=== PATIENT | female | born 1980 | race Caucasian/White ===

== ENCOUNTER 2019-06-19 05:32 | Inpatient (IN) | payer OTHER ==
[2019-06-16 14:50] LABS: BASOPHILS 1.5 % (0-2); EOSINOPHILS 3.8 % (0-7); HEMATOCRIT 35.5 % (36.0-48.0); LYMPHOCYTES 34.2 % (15-50); MCH 26.1 pg (26.0-34.0); MCV 84.3 fL (80.0-100.0); MEAN PLATELET VOLUME 10.3 fL (7.4-10.4); MONOCYTES 9.6 % (2-11); NEUTROPHILS 50.9 % (40-80); PLATELET COUNT 243 10x3/uL (130-400); RBC 4.21 10x6/uL (4.00-5.40); RDW 18.5 % (11.5-14.5); WBC 4.8 10x3/uL (4.8-10.8)
[2019-06-16 15:00] LABS: CALC OSMOLALITY 276 mosm/kg (275-300); CALCIUM 8.8 mg/dL (8.5-10.1); CARBON DIOXIDE 30.4 mmol/L (21.0-32.0); CHLORIDE - SERUM 103 mmol/L (98-107); CREATININE - SERUM 0.9 mg/dL (0.6-1.3); GLUCOSE 83 mg/dL (74-106); SODIUM 140 mmol/L (136-145); UREA NITROGEN 9 mg/dL (7-18); eGFR NON AFRICAN AMERICAN 75 mL/min (90-120)
[~2019-06-19] VITALS: Ht 167.6 cm; Wt 75.5 kg
[2019-06-19] VITALS (8 sets, daily range): BP systolic 97–145; BP diastolic 62–93; BMI 26.8
[~2019-06-19 05:32] MED LIST: FIBER; MOTRIN600 MG PO; PERCOCET 5/3251 TA1 PO; PRENATAL COMPLE1 TAB; SLOW RELEASE I160 MG PO
[2019-06-19 06:30] LABS: HCG URINE NEGATIVE (NEGATIVE)
--- NOTE | 2019-06-19 09:12 | NUR ---
AMANDA REF [id number] LOT [id number] EXP 05/18/2023
--- NOTE | 2019-06-19 10:29 | NUR ---
PT RECEIVED VIA BED TO ROOM 1273 FROM RECOVERY. PT AAOx3, RATES PAIN 6/10 AT THIS TIME. IV INFUSING LR ORDERED TO LEFT HAND, 20G PIV NOTED WITH TEGADERM C/D/I. 3 LAP ABD INCISIONS ARE C/D WITH DERMABOND INTACT, NO DRAINAGE NOTED. NO REDNESS OR SWELLING NOTED TO INCISION SITES. NO VAGINAL BLEEDING SEEN, PERIPAD PLACED TO MONITOR. TOVAR CATH DRAINING CLEAR YELLOW URINE TO BEDSIDE DRAINAGE. SCD'S ON LE BILAT AND ON PUMP. GOOD PEDAL PULSES 2+ BILAT. VSS, SEE POST OP VITALS FOR DOC. WILL ADMIN PAIN MED ORDERED.
--- NOTE | 2019-06-19 10:34 | NUR ---
PT ADMIN SCHEDULED TORADOL IVP ORDERED, RATING PAIN 5-6 AT THIS TIME. SEE EMAR FOR DOC. WILL REASSESS.
--- NOTE | 2019-06-19 10:38 | NUR ---
TOVAR CATH REMOVED PER ORDER, 130ML CLEAR YELLOW URINE NOTED IN UROMETER. PT KIESHA WELL. PT INSTRUCTED TO NOTIFY THIS RN WHEN SHE FEELS THE URGE TO VOID TO ASSIST TO BR FIRST TIME UP AMBULATING. UNDERSTANDING VERBALIZED.
--- NOTE | 2019-06-19 11:05 | NUR ---
THIS RN TO ROOM FOR PT CHECK. PT RESTING SUPINE WITH LEFT TILT, EYES CLOSED, RESP EVEN AND UNLABORED. PT LEFT UNDISTURBED FOR REST. PT'S MOTHER ON BEDSIDE COUCH. SRUx2, CL IN REACH.
--- NOTE | 2019-06-19 11:21 | NUR ---
PT C/O PAIN RATED APPROX 5/10 IN ABD, REQUESTING PAIN MED. PT ADMIN 1MG DILAUDID PER ORDER, SEE EMAR FOR DOC. WILL REASSESS.
--- NOTE | 2019-06-19 12:06 | NUR ---
PT C/O NO PAIN RELIEF, RATES PAIN 6-7/10. PT ADMIN ADDITIONAL 1MG DILAUDID PER ORDER, FOR TOTAL OF 2MG. SEE EMAR FOR DOC. FANS DELIVERS LUNCH TRAY. PT INSTRUCTED SHE MAY EAT SLOWLY TOLERATED AND TO REPORT ANY NAUSEA. PT STATES SHE HAS ONLY TAKEN SIPS OF WATER AND DOES NOT WANT TO TRY TO EAT RIGHT NOW. PT HOB ELEVATED TO APPROX 60 DEGREES, ENCOURAGED TO DEEP BREATHE AND DOES SO. WILL ALLOW PT TO REST. SRUx2, CL IN REACH. WILL CONT TO MONITOR. PT'S MOTHER ON BEDSIDE COUCH.
--- NOTE | 2019-06-19 12:48 | NUR ---
PT PLACED ON 2L OXYGEN VIA NC FOR OXYGEN SATURATIONS NOT WNL POST IVP DILAUDID.
--- NOTE | 2019-06-19 14:30 | NUR ---
PT CALLS OUT [employer]UAL[employer] INSURANCE CLAIM ADJUSTER LIGHT STATING SHE "NEEDS TO GET UP TO PEE." THIS RN TO ROOM. IV SALINE LOCKED, OXYGEN OFF, SCD'S OFF. PT UP TO BR WITHOUT ASSIST, AMBULATES TO BR WITH STEADY GAIT. SMALL AMOUNT BRIGHT RED BLEEDING NOTED TO PERIPAD. PERICARE PER PT, NEW PAD AND PANTIES PLACED. PT UNABLE TO VOID. PT ENCOURAGED WILL TRY AGAIN, AND IF STILL UNABLE TO VOID AT 6 HOUR MARY POST TOVAR REMOVAL, WILL BLADDER SCAN. UNDERSTANDING VERBALIZED. PT PROVIDED WITH NEW ICE PACK TO ABD, FRESH ICE WATER, AND JELLO AND ENCOURAGED TO DRINK. NEURONTIN ADMIN ORDERED, SEE EMAR FOR DOC. PT DENIES NAUSEA OR ANY NEEDS AT THIS TIME, DENIES WANTING CRACKERS OR ANYTHING TO EAT. SRUx2, CL IN REACH. WILL CONT TO MONITOR. FAMILY ON BEDSIDE COUCH.
--- NOTE | 2019-06-19 17:07 | NUR ---
THIS RN TO ROOM FOR PT CHECK. PT RESTING WITH LIGHTS OFF. PT AWAKE, STATES SHE GOT UP TO BR BUT WAS UNABLE TO VOID. BLADDER SCANNED AND SHOWS 152ML URINE IN BLADDER x 2 SCANS. PT ENCOURAGED TO CONTINUE TO DRINK, LARGE CUP OF ICE FILLED FOR THIRD TIME. PT STATES SHE ATE MASHED POTATOES FROM DINNER TRAY ONLY. PT DENIES NAUSEA BUT REPORTS LACK OF APPETITE. PT ENCOURAGED, WILL RE-EVALUATE BLADDER. SCHEDULED TORADOL ADMIN ORDERED, SEE EMAR FOR DOC. PT DENIES FURTHER NEEDS. SRUx2, CL IN REACH. SPOUSE ON BEDSIDE COUCH.
--- NOTE | 2019-06-19 17:53 | NUR ---
DR QUEEN PHONED AND REPORT GIVEN THAT PT HAS STILL NOT BEEN ABLE TO VOID, BLADDER SCAN OF 152ML, AND THAT PT IS TOLERATING PO FLUIDS AND DRINKING WELL. ORDER RCVD TO GIVE PT MORE TIME, AND IF SHE HAS NOT VOIDED BY 1899, TO GIVE PT IV BOLUS OF 500ML LR.
--- NOTE | 2019-06-19 18:10 | NUR ---
PT RESTING WITH SIG OTHER AT BEDSIDE, LEFT UNDISTURBED.
--- NOTE | 2019-06-19 18:53 | NUR ---
LYING ON LT SIDE WITH RESPIRATIONS UNLABORED. FOB ASLEEP ON SOFA BESIDE BED. LIGHTS IN ROOM PRESENTLY DIMMED.
--- NOTE | 2019-06-19 19:05 | NUR ---
UP WALKING IN HALLWAY. GAIT STEADY. PT. REPORTS THAT SHE HAS OF YET NOT VOIDED BUT DOES NOT FEEL URGE. COMPLAINS THAT MOUTH VERY DRY.
--- NOTE | 2019-06-19 19:08 | NUR ---
PT AMBULATING IN HALLWAY WITH S/O. TOLERATED WELL. PT REPORTS THAT SHE HAS NOT VOIDED AT THAT TIME. WATER PITCHER FILLED. ENCOURAGED PT TO DRINK FLUIDS AFTER AMBULATING. VERBALIZED UNDERSTANDING.
--- NOTE | 2019-06-19 19:20 | NUR ---
PT RESTING IN BED. ASSESSMENT COMPLETE PER FLOWSHEET. VSS. BBS CLEAR. HYPOACTIVE BS X4 QUADRANTS. PT REPORTS THAT SHE HAS NOT PASSED FLATUS AT THIS TIME. ABDOMINAL INCISIONS X2 AND UMBILICUS INCISION C/D/I WITH DERMABOND. PT REPORTS THAT SHE HAS HAD A SMALL AMOUNT OF VAGINAL BLEEDING ON HER PERIPAD. PT REPORTS THAT SHE HAS NO VOIDED SINCE FC WAS REMOVED. WILL START 500ML BOLUS OF LR PER MD ORDER. IV TO LEFT HAND WITHOUT REDNESS OR TENDERNESS. NO EDEMAN NOTED TO BLE. PT WAS UP AND AMBULATING IN THE HALLWAY EARLIER AND SCDS ARE OFF AT THIS TIME. POC DISCUSSED INCLUDING PAIN MANAGEMENT. ENCOURAGING PT TO DRINK FLUIDS, IV FLUIS BOLUS, VOIDING, AMBULATION, INCISION CARE AND S/S OF INFECTION. QUESTIONS ANSWERED. PT INSTRUCTED TO NOTIFY NURSE WITH ANY PROBLEMS, NEEDS, OR CONCERNS. VERBALIZED UNDERSTANDING. BED IN LOW POSITION. SR UP X2. CALL LIGHT WITHIN PT REACH. S/O AT BEDSIDE.
--- NOTE | 2019-06-19 19:39 | NUR ---
PERCOCET 5 X1 TABLET GIVE FOR C/O ABD/INC PAIN. CRACKERS PROVIDED. INSTRUCTED PT TO NOTIFY NURSE IF MEDICATION NOT EFFECTIVE OR WITH ANY OTHER PROBLEMS, NEEDS,OR CONCERNS. VERBALIZED UNDERSTANDING.
--- NOTE | 2019-06-19 19:42 | NUR ---
PT UNABLE TO VOID. 500ML FLUID BOLUS OF LR STARTED PER MD ORDER. IV FLUSHED WITHOUT DIFFICULTY. NO REDNESS OR TENDERNESS NOTED TO SITE.
--- NOTE | 2019-06-19 20:12 | NUR ---
PT RESTING IN BED. S/O AT BEDSIDE. PT DENIES ANY COMPLAINTS. WATER PITCHER FILLED. IV CONTINUES TO INFUSE BOLUS AT THIS TIME. INSTRUCTED PT TO NOTIFY NURSE WITH ANY PROBLEMS, NEEDS, OR CONCERNS. VERBALIZED UNDERSTANDING.
--- NOTE | 2019-06-19 20:25 | NUR ---
LR BOLUS FINISHED AT THIS TIME. IV FLUSHED. NO REDNESS OR TENDERNESS NOTED TO SITE/ PT NOW REPORTS HER IS 3/10. WATER PITCHER FILLED. ENCOURAGED PT TO AMBULATE AND TO NOTIFY NURSE IF SHE VOIDS. INSTRUCTED PT TO NOTIFY NURSE WITH ANY PROBLEMS, NEEDS, OR CONCERNS. VERBALIZED UDNERSTANDING.
--- NOTE | 2019-06-19 20:30 | NUR ---
PT AND S/O AMBULATING IN HALLWAY. TOLERATING WELL.
--- NOTE | 2019-06-19 21:55 | NUR ---
PT RESTING IN BED. PT REPORTS THAT SHE HAS NOT VOIDED AT THIS TIME. BLADDER SCANNED AND 356ML NOTED.
--- NOTE | 2019-06-19 22:00 | NUR ---
PT UP TO BATHROOM. THEO BOTTLE WITH WARM WATER GIVEN TO PT.
--- NOTE | 2019-06-19 22:10 | NUR ---
PT BACK TO BED. PT VOIDED 175ML OF BLOOD TINGED URINE WITHOUT DIFFICULTY. NO REQUEST MADE. INSTRUCTED PT TO NOTIFY NURSE WITH ANY PROBLEMS, NEEDS,OR CONCERNS. VERBALIZED UNDERSTANDING. BED IN LOW POSITION. SR UP X2. CALL LIGHT WITHIN PTS REACH.
--- NOTE | 2019-06-19 22:42 | NUR ---
PT RESTING IN BED. SCHEDULED MEDICATIONS GIVEN. NO REQUEST MADE. INSTRUCTED PT TO NOTIFY NURSE WITH ANY PROBLEMS, NEEDS, OR CONCERNS. VERBALIZED UNDERSTANDING. BED IN LOW PSOTIONS. SR UP X2. CALL LIGHT WITHIN PTS REACH.
[2019-06-20] VITALS: BP 124/83
--- NOTE | 2019-06-20 | NUR ---
PT RESTING IN BED. S/O RESTING ON COUCH AT BEDSIDE. VS OBTAINED. PT DENIES ANY C/O PAIN AT THIS TIME. WATER PITCHER FILLED. FRESH ICE PACK PLACED TO ABD INCISIONS. PT NOT WEARING SCDS AT THIS TIME. OFFERED TO PLACED TO BLE. PT DECLINED STATING THAT SHE WANTS TO LEAVE THEM OFF SINCE SHE WILL BE GETTING UP TO THE BATHROOM. NO OTHER REQUEST MADE. INSTRUCTED PT TO NOTIFY NURSE WITH ANY PROBLEMS, NEEDS, OR CONCERNS. VERBALIZED UNDERSTANDING. BED IN LOW POSITION. SR UP X2. CALL LIGHT WITHIN PTS REACH.
--- NOTE | 2019-06-20 02:00 | NUR ---
PT RESTING IN BED WITH EYES CLOSED. NO DISTRESS NOTED. BED IN LOW POSITION. SR UP X2. CALL LIGHT WITHIN PTS REACH.
--- NOTE | 2019-06-20 02:37 | NUR ---
PT RESTING INBED. PERCOCET 5 X1 TABLET GIVEN FOR C/O ABD/INC PAIN OF 01/28. PT ALSO VOIDED 875ML OF CLEAR YELLOW URINE. NO OTHER REQUEST MADE. INSTRUCTED TO NOTIFY NURSE WITH ANY PROBLEMS, NEEDS, OR CONCERNS. VERBALIZED UNDERSTANDING. BED IN LOW POSITION. SR UP X2. CALL LIGHT WITHIN PTS REACH.
--- NOTE | 2019-06-20 03:41 | NUR ---
PT RESTING IN BED WITH EYES CLOSED. NO DISTRESS NOTED. BED IN LOW POSITION. SR UP X2. CALL LIGHT WITHIN PTS REACH.
[2019-06-20 04:45] VITALS: BP 118/74
--- NOTE | 2019-06-20 04:45 | NUR ---
PT RESTING IN BED. VSS. PT UP TO BATHROOM AND VOIDED 600ML OF CLEAR YELLOW URINE. SCHEDULED PO TORADOL GIVEN. ICE PITCHER FILLED. FRESH ICE PACK PLACED TO ABD INCISION. SL FLUSHED WITHOUT DIFFICULTY. NO REDNESS OR TENDERNESS NOTED TO SITE. NO OTHER REQUEST MADE. INSTRUCTED PT TO NOTIFY NURSE WITH ANY PROBLEMS, NEEDS,OR CONCERNS. VERBALIZED UNDERSTANDING. BED IN LOW POSITION. SR UP X2. CALL LIGHT WITHIN PTS REACH.
--- NOTE | 2019-06-20 05:49 | NUR ---
PT RESTING IN BED WITH EYES CLOSED. NO DISTRESS NOTED. BED IN LOW POSITION. SR UP X2. CALL LIGHT WITHIN PTS REACH.
--- NOTE | 2019-06-20 06:55 | NUR ---
BEDSIDE REPORT COMPLETED. PT DROWSY, VSS, AFEBRILE, RESP EVEN AND UNLABORED, APPROPRIATELY RESPONSIVE, DENIES NEEDS/CONCERNS OR C/O PAIN. REVIEWED PLAN OF CARE, STATES UNDERSTANDING. CALL LIGHT IN EASY REACH, BED IN LOW POSITION, BED BRAKES LOCKED, AND SIDE RAILS UP X2. WILL MONITOR.
[2019-06-20 06:57] VITALS: BP 120/73
--- NOTE | 2019-06-20 07:48 | NUR ---
PT REPORTS PAIN LEVEL OF 6-7 ON NUMERIC PAIN SCALE, PRN PERCOCET GIVEN WITH SIPS OF WATER, NO OTHER NEEDS VOICED AT THIS TIME. WILL MONITOR.
[2019-06-20] MEDS ORDERED: NEURONTIN 300300 MG PO ×2 (08:12→08:14)
[2019-06-20] MEDS ORDERED: IBUPROFEN800 MG PO (08:13)
[2019-06-20] MEDS ORDERED: PERCOCET 5-3251 TAB PO (08:15)
--- NOTE | 2019-06-20 08:54 | NUR ---
PT GIVEN SCHEDULED NEURONTIN PER MD ORDERS WITH SIPS WATER, NAD NOTED, RESP EVEN AND UNLABORED, OOB TO VOID, VOIDS WITHOUT DIFFICULTY. NAD NOTED. WILL MONITOR.
[2019-06-20 08:55] VITALS: BP 120/73; Ht 167.6 cm; Wt 75.5 kg
--- NOTE | 2019-06-20 09:07 | NUR ---
ADMISSION HISTORY AND ASSESSMENT COMPLETED. PT AAOX3, RESP EVEN AND UNLABORED, LUNGS CTAB, HEART RRR WITHOUT AUDIBLE MURMUR, CLICKS, OR RUBS. ABD SOFT AND MILDY TENDER TO LIGHT PALPATION, LAP INCISION X3 TO UMBILICUS AND LOWER LEFT AND RIGHT QUADRANTS CDI WITH DERMABOND, NO DRAINAGE, EDEMA, WARMTH, OR REDNESS NOTED. VOIDING WITHOUT DIFFICULTY, DENIES VAGINAL BLEEDING OR CLOTS, VALLE FREELY, NEGATIVE DAVID'S SIGN B LE. PEDAL PULSES STRONG AND EQUAL 2+/=, CAP REFILL LESS THAN 2 SECONDS. REVIEWED DISCHARGE INSTRUCTIONS WITH PT, COPIES PROVIDED FOR REFERRAL ONCE DISCHARGED. PT WAITING ON SPOUSE TO RETURN TO UNIT FOR DISCHARGE. ICE PACK OVERLAY TO INCISION REFRESHED PER PT REQUEST, NO FURTHER NEEDS/CONCERNS AT THIS TIME, CONTINUE TO MONITOR FOR CHANGE IN CONDITION. PT STATES UNDERSTANDING OF ALL INSTRUCTIONS PROVIDED.
--- NOTE | 2019-06-20 10:22 | NUR ---
PT DISCHARGED VIA WHEELCHAIR WITH PERSONAL BELONGINGS TO PRIVATE AUTO IN CARE OF SPOUSE. NAD NOTED.
--- NOTE | 2019-06-22 04:19 | OP ---
PATIENT NAME: TAPAN SMITH MEDICAL RECORD: [id number] :82 LOCATION:[id number] ADMISSION DATE:06/20/19 SURGEON: JHON QUEEN MD DATE OF OPERATION: 06/19/2019 PREOPERATIVE DIAGNOSIS: Symptomatic fibroid uterus. POSTOPERATIVE DIAGNOSIS: Symptomatic fibroid uterus. PROCEDURES: 1. Diagnostic laparoscopy. 2. Total laparoscopic hysterectomy with bilateral salpingectomy. SURGEON: Jhon Queen MD SALES AND MARKETING REPRESENTATIVE: David. STRATEGIC MARKETING SPECIALIST: Abhijit Ba. ANESTHESIOLOGIST: Dr. Bradley. ANESTHESIC: General anesthetic with endotracheal intubation. FINDINGS: Approximately 6 cm uterine fibroid located just right of midline at the fundus. The rest of the abdominal and pelvic anatomy was unremarkable. SPECIMENS REMOVED: Uterus with bilateral tubes. SPECIMEN DISPOSITION: All specimens to pathology. ESTIMATED BLOOD LOSS: Less than or equal to 125 cc. FLUIDS: 1700 cc of lactated Ringer's. URINE OUTPUT: 300 cc of clear urine. COMPLICATIONS: None. DRAINS: Lott to gravity. INDICATIONS: The patient is a 38-year-old female with heavy regular periods. The patient has known history of fibroid uterus. The patient has cycles that are also marked with intense cramping and pelvic pressure. The patient is considered for diagnostic laparoscopy, laparoscopic hysterectomy, and any indicated procedure. DESCRIPTION OF PROCEDURE: After informed consent was assured, the patient was taken to the operating room where anesthetic was obtained. The patient is now prepped and draped after being placed in Yellofin stirrups. A speculum was now introduced into the vagina and the cervix grasped with a single tooth tenaculum. The cervix was dilated and a large cupped VCare manipulator inserted. Once this had been performed, attention was directed to the abdomen where an incision was made at the umbilicus to accommodate a 5-mm trocar. Pneumoperitoneum was developed and the patient is in Trendelenburg position. A 10-mm port is now placed in the right lower quadrant. A 5-mm port was placed in the left lower OPERATIVE REPORT [id number] TAPAN SMITH [facility]. Through the left hand port, a grasper was inserted. The right tube elevated and using a Thunderbeat coagulation cutter, the mesosalpinx is now compressed, coagulated, and . This dissection was carried to the level of the cornual and the tube was removed from its attachments to the uterus and taken out of the pelvis. The uterine, ovarian, and round ligaments were now compressed, coagulated, and . The anterior leaf of the broad ligament was opened and the bladder flap developed to the midline. Posteriorly, the vessels of the right side were skeletonized. These vessels were now compressed and coagulated. Attention is now directed to the left side. The left tube was elevated from the right. Again, using the Thunderbeat coagulation cutter, the tube was removed from its attachment to the adnexa. The dissection again was carried out over the uterine, ovarian, and round ligaments on the left side. The vessels of the right are skeletonized, compressed, coagulated, and . During dissection, increased bleeding was encountered through the accessory vessels. A 5-mm port was removed and a 10-mm port now replaces this on the left side. Through this port, a 10-mm clip blueprinter was inserted and the vessels of the left side have clips applied to them to obtain hemostasis. The attention was now directed back to the right side. Further dissection reveals accessory vessels, which are now compressed, coagulated, and on the right. Dissection of the uterus from the vaginal cuff begins. This dissection was carried out from the 3-6 o'clock position and then from the 3 to the 12 o'clock positions. Dissection was completed from a 6-12 o'clock position on the left. Uterus is now pulled into the vagina and the pneumoperitoneum maintained. The pelvis was irrigated and irrigant removed. Any vessels that were noted to be bleeding are cauterized. The cuff was now closed with interrupted stitches using an EndoStitch. The cuff is closed with interrupted 0 Vicryls. Once the cuff has been closed, the pelvis was irrigated and irrigant removed. Irving was placed over the raw surfaces of the lower pelvis. Sponge, lap, and needle counts correct times 2. The pneumoperitoneum was released and the trocars were removed. The skin was reapproximated with Monocryl and Dermabond was applied. TRANSINT:[id number] Voice Confirmation ID: [id number] DOCUMENT ID: [id number] JHON QUEEN MD at [id number] CC: [id number] DICTATION DATE: 06/19/19 0958 INSURANCE COLLECTOR: 06/19/19 1155 DIS IN 06/20/19 [facility] [address] [place] [address]
== END 2019-06-20 18:15 | disposition home or self-care (01) | DRG 743 ==
LOC: D.OPS 05:32 → D.PAN 07:30 → D.OPS 07:30 → D.LD 10:10 → D.OPS 06-20 13:00 → D.LD 06-20 15:00
PROVIDERS: ADMIT Obstetrics & Gynecology; ATTEND Obstetrics & Gynecology
PROC: 0UT94ZZ Resection of Uterus, Percutaneous Endoscopic Approach (ICD-10-PCS; principal; 2019-06-19 07:00)
PROC: 0UT74ZZ Resection of Bilateral Fallopian Tubes, Percutaneous Endoscopic Approach (ICD-10-PCS; 2019-06-19 07:00)
DX: D25.9 Leiomyoma of uterus, unspecified (principal); N94.5 Secondary dysmenorrhea